=== PATIENT | male | born 1970 | race Caucasian/White ===

== ENCOUNTER 2023-01-10 13:26 | Observation (INO) ==
[2023-01-10 13:51] LABS: ABS Eosinophils 0.1 10^3/ul (0-0.6); ABS Lymphocytes 1.6 10^3/ul (1.0-4.8); ABS Monocytes 0.5 10^3/ul (0-0.8); ABS Neutrophils 4.4 10^3/ul (1.5-7.7); Eosinophil % 0.9 %; Hematocrit 42 % (42-52); Lymphocyte % 24.7 %; Mean Corpuscular HGB Conc 34 g/dL (31-36); Mean Corpuscular Hemoglobin 31 pg (27-31); Mean Corpuscular Volume 93 fL (80-94); Mean Platelet Volume 7.1 fL (7.4-10.4); Nucleated Red Blood Cells % 0.1; Platelet Count 233 10^3/uL (150-450); Red Blood Count 4.51 10^6 /uL (4.18-5.48); Red Cell Distribution Width 14 % (10-15); White Blood Count 6.6 10^3/uL (3.5-10.8)
[2023-01-10 13:58] LABS: INR 1.16 (0.88-1.18)
[2023-01-10 14:26] LABS: Albumin 4.2 g/dL (3.2-5.2); Calcium 9.4 mg/dL (8.6-10.3); Potassium 3.9 mmol/L (3.5-5.0); Total Bilirubin 0.6 mg/dL (0.2-1.0)
[2023-01-10 14:32] LABS: Albumin/Globulin Ratio 1.8 (1-3); Creatinine, Serum 1.06 mg/dL (0.67-1.17); Globulin 2.4 g/dL (2-4); Total Protein 6.6 g/dL (6.4-8.9); eGFR CKD-EPI 83.9 (>60)
[2023-01-10 15:18] LABS: High Sensitivity Troponin 1 Hr 4 pg/mL (<20)
[2023-01-10 17:56] LABS: HDL Cholesterol 51.6 mg/dL; Magnesium 1.8 mg/dL (1.9-2.7)
[2023-01-10] MEDS ORDERED: Magnesium Sulfate 2 gm BAG 2 GM/50 ML BAG IVPB ONE (17:57)
[2023-01-10] MEDS: Enoxaparin 40 MG/0.4 ML SYR SUBCUT SCH (19:19)
[2023-01-11 06:20] LABS: ABS Eosinophils 0.1 10^3/ul (0-0.6); ABS Lymphocytes 1.6 10^3/ul (1.0-4.8); ABS Monocytes 0.5 10^3/ul (0-0.8); ABS Neutrophils 2.9 10^3/ul (1.5-7.7); Eosinophil % 2.5 %; Hematocrit 42 % (42-52); Hemoglobin 14.2 g/dL (14.0-18.0); Lymphocyte % 31.6 %; Mean Corpuscular HGB Conc 34 g/dL (31-36); Mean Corpuscular Hemoglobin 32 pg (27-31); Mean Corpuscular Volume 94 fL (80-94); Mean Platelet Volume 7.4 fL (7.4-10.4); Platelet Count 229 10^3/uL (150-450); Red Blood Count 4.45 10^6 /uL (4.18-5.48); Red Cell Distribution Width 14 % (10-15); White Blood Count 5.1 10^3/uL (3.5-10.8)
[2023-01-11 06:28] LABS: INR 1.16 (0.88-1.18)
[2023-01-11 06:36] LABS: Calcium 9.3 mg/dL (8.6-10.3); Creatinine, Serum 0.97 mg/dL (0.67-1.17); Potassium 4.3 mmol/L (3.5-5.0); eGFR CKD-EPI 93.3 (>60)
[2023-01-11] MEDS: Enoxaparin 40 MG/0.4 ML SYR SUBCUT SCH (19:15)
[2023-01-12 10:40] VITALS: BP 135/72
== END 2023-01-12 11:15 | disposition home or self-care (01) ==
LOC: EDHOLD 13:26 → ED 13:26 → EDHOLD 19:45 → MEDTELE 20:00
PROVIDERS: ADMIT Hospitalist; ATTEND Hospitalist